=== PATIENT | male | born 1990 | race Caucasian/White ===

== ENCOUNTER 2019-02-16 11:05 | Emergency (ER) | payer OTHER ==
[~2019-02-16] VITALS: Ht 177.8 cm; Wt 80.5 kg
[2019-02-16 11:34] VITALS: BP 153/80
--- NOTE | 2019-02-16 13:20 | NUR ---
PT BIB C/O LACERATIONON TO FOREHEAD WITH FIRM MASS UNDERNEATH LACERATION. PT REPORTS HITTING HEAD ON COUNTER 2 DAYS AGO, WAS ABLE TO STOP BLEEDING, AND THEN THIS MORNING HIS DAUGHTER SWIPED AT THE WOUND CAUSING SWELLING. URGENT CARE SENT PT TO ER. PT DNIES ANY LOC/KO, NO BLEEDING AT THIS TIME. MARLEN GUTHRIE. MEDHX:DENIES
[2019-02-16] MEDS ORDERED: LIDOCAINE 1% 500 MG/50 ML VIAL INJ ONE ×2 (13:32→13:35)
[2019-02-16] MEDS ORDERED: cefTRIAXone 1,000 MG in LIDOCAINE 1% ***ER ONLY *** 2.1 ML IM ONE (13:35)
[2019-02-16] MEDS ORDERED: NEOMYCIN/POLYMYXIN/BACITRACIN 0.9 GM/1 PKT TP ONE ×2 (13:35)
[2019-02-16] MEDS ORDERED: HYDROcodone/APAP 5/325 MG 1 TAB TAB PO ONE (13:35)
--- NOTE | 2019-02-16 13:43 | NUR ---
Pt report given to ANGELES. Transfer of care at this time.
[2019-02-16] MEDS ORDERED: cefTRIAXone 1,000 MG VIAL ONE (13:54)
[2019-02-16] MEDS ORDERED: LIDOCAINE MPF 1% - 5 mL VIAL 10 ML ONE (13:55)
--- NOTE | 2019-02-16 13:55 | NUR ---
MEDICATED WRITTEN---WILL CONTINUE TO OBSERVE FOR PAIN CONTROL JAGGED LACERATION TO FOREHEAD WITH NO DRAINAGE NOTED AWAITS CT SCAN PT STATED FELL AND HIT HEAD ONTO COUNTER X 2 DAYS AGO---HEMATOMA TODAY AFTER DAUGHTER SWIPED WOUND ACCIDENTLY PT DENIES CONCEPCIÓN, NO N/V---
--- NOTE | 2019-02-16 13:57 | NUR ---
PT TO CT SCAN VIA WC
--- NOTE | 2019-02-16 13:58 | NUR ---
SUTURE SET UP AT BEDSIDE
--- NOTE | 2019-02-16 14:15 | NUR ---
RETURNED FROM CT
[2019-02-16] MEDS ORDERED: LIDOCAINE 1% 500 MG/50 ML VIAL INJ SCH (15:15)
[2019-02-16] MEDS ORDERED: LIDOCAINE MPF 1% - 5 mL VIAL 5 ML ONE (15:25)
--- NOTE | 2019-02-16 16:16 | NUR ---
Patient discharged with v/s stable. Written and verbal after care instructions given and explained. Patient alert, oriented and verbalized understanding of instructions. Ambulatory with steady gait. All questions addressed prior to discharge. ID band removed. Patient advised to follow up with PMD. Rx of KEFLEX/IBUPROFEN/BACTRIM given. Patient educated on indication of medication including possible reaction and side effects. Opportunity to ask questions provided and answered.
[2019-02-16 16:17] VITALS: BP 134/71
== END 2019-02-16 16:16 | disposition home or self-care (01) ==
LOC: MED 11:05
DX: S01.81XA Laceration without foreign body of other part of head, initial encounter (principal); W22.09XA Striking against other stationary object, initial encounter; Y93.89 Activity, other specified; Y92.89 Other specified places as the place of occurrence of the external cause; Y99.8 Other external cause status
CPT/HCPCS: 12014; 70450; 70486; 90471; 90715; 96372; 99284; J0696; J2001